=== PATIENT | female | born 1945 | race Caucasian/White ===

== ENCOUNTER 2016-11-20 15:21 | Emergency (ER) | payer MEDICAID, OTHER ==
[~2016-11-20] VITALS: Ht 165.1 cm; Wt 90.0 kg
[~2016-11-20 15:21] MED LIST: ALBU8.5H3 INH; AMLO-145 PO; AMOX1TAB10 PO; BENZ1LOZ52 MM; CIPR500T4 PO; CLON-339 PO; FURO-109 PO; GUAI120S26 PO; HYDR-3498 PO; HYDR25TA6 PO; IBUP-1542 PO; TRAM50TA2 PO
[2016-11-20 15:24] VITALS: Ht 165.1 cm; Wt 90.0 kg
[2016-11-20] MEDS ORDERED: ALBUTEROL 0.5% (NEB) 2.5 MG/0.5 ML AMP INH STA (16:18)
[2016-11-20] MEDS ORDERED: IPRATROPIUM (NEB) 0.5 MG/2.5 ML AMP INH STA (16:18)
[2016-11-20] MEDS ORDERED: METHYLPREDNISOLONE 125 MG INJ IM STA (16:18)
--- NOTE | 2016-11-20 17:02 | RADRPT ---
PROCEDURE: XR Chest. CLINICAL INDICATION: Cough, wheezing. TECHNIQUE: PA and lateral chest x-ray. COMPARISON: 01/21/2016 FINDINGS: There is retrocardiac consolidation. The left hemidiaphragm is obscured. The lungs are clear. There is no evidence of pleural effusion. No pneumothorax identified. The heart size is large. There is atherosclerotic calcification of the aorta. The cardiomediastinal silhouette is unremarkable. Right shoulder joint capsule calcifications measuring up to 1.3 cm, unchanged. The soft tissues are within normal limits. IMPRESSION: 1. Retrocardiac atelectasis versus infiltrate. 2. Cardiomegaly increased from previous exam.. 3. Atherosclerotic calcification of the aorta.. RPTAT: QQ .Waldo Skinner MD, Date Time Electronically viewed and signed by .Waldo Skinner MD, on 11/20/2016 17:02 .M/
[2016-11-20] MEDS ORDERED: AZITHROMYCIN 500MG/NS (PMX) 250 ML IVPB ONE (18:00)
[2016-11-20] MEDS ORDERED: CEFTRIAXONE 1 GM/50 ML (PMX) 50 ML IVPB ONE (18:00)
[2016-11-20 18:17] LABS: ABNORMAL IP MESSAGE 1; BASOPHIL # 0.1 10^3/ul (0.0-0.1); BASOPHILS % 0.4 % (0.0-2.0); EOSINOPHILS % 0.2 % (0.0-7.0); HEMATOCRIT 40.2 % (37.0-47.0); HEMOGLOBIN 13.1 g/dl (12.0-16.0); LYMPHOCYTES # 5.2 10^3/ul (0.8-2.9); LYMPHOCYTES % 36.8 % (15.0-51.0); MEAN CORPUSCULAR HEMOGLOBIN 27.2 pg (29.0-33.0); MEAN CORPUSCULAR HGB CONC 32.6 g/dl (32.0-37.0); MEAN CORPUSCULAR VOLUME 83.6 fl (82.0-101.0); MEAN PLATELET VOLUME 10.5 fl (7.4-10.4); MONOCYTE # 0.9 10^3/ul (0.3-0.9); NEUTROPHILS % 55.6 % (39.0-77.0); PLATELET COUNT 282 10^3/UL (140-415); RED BLOOD COUNT 4.81 10^6/ul (4.20-5.40); RED CELL DISTRIBUTION WIDTH 15.5 % (11.5-14.5); WHITE BLOOD COUNT 14.2 10^3/ul (4.8-10.8)
[2016-11-20 18:18] LABS: POSITIVE DIFF @See below
[2016-11-20 18:32] LABS: INR 0.96; PROTIME 12.8 Sec (12.2-14.2)
[2016-11-20 18:33] LABS: PARTIAL THROMBOPLASTIN TIME 23.9 Sec (25.0-35.0)
[2016-11-20 18:35] LABS: ALBUMIN 3.8 g/dl (3.3-4.9); ALBUMIN/GLOBULIN RATIO 1.31; BILIRUBIN,INDIRECT 0.3 mg/dl (0-1.1); BILIRUBIN,TOTAL 0.3 mg/dl (0.2-1.3); CALCIUM 9.1 mg/dl (8.4-10.2); CREATININE 0.97 mg/dl (0.44-1.00); POTASSIUM 3.8 mmol/L (3.5-5.1); TOTAL PROTEIN 6.7 g/dl (6.1-8.1)
[2016-11-20 18:47] LABS: TROPONIN-I 0.014 ng/ml (0.00-0.12)
--- NOTE | 2016-11-20 19:01 | ERD ---
ER Documentation Chief Complaint Date/Time DATE: 11/20/16 Chief Complaint Cough x 15 days, history of asthma HPI The patient is a 71-year-old female with a history of asthma, who presents to the Emergency Department with complaint of cough and wheezing. The patient reports that her cough initially began 15 days ago, with onset of rhinorrhea, mildly dry cough, with associated intermittent wheezing. However, she notes that over the past week, her cough has become more productive, with yellow- colored sputum. Additionally, she notes more frequently wheezing. She admits to a history of asthma, but states that she no longer has an inhaler, and no longer has an Albuterol vials for her nebulizer machine at home. Therefore, she has been using Robitussin at home, with minimal relief. She denies any fevers, sweats, chills, chest pain, palpitations, shortness of breath, abdominal pain, vomiting, diarrhea, dysuria, hematuria, flank pain, headache, dizziness, neck pain or new rashes. She has not yet seen her doctor for these symptoms. ROS All systems reviewed and are negative except as per history of present illness. Medications Home Meds Active Scripts Prednisone* (Prednisone*) 20 Mg Tab, 40 MG PO DAILY for 5 Days, TAB Prov:MILAGROS STEARNS PA-C 11/20/16 Doxycycline Hyclate* (Doxycycline Hyclate*) 100 Mg Tablet.dr, 100 MG PO BID for 10 Days, TAB Prov:MILAGROS STEARNS PA-C 11/20/16 Albuterol Sulfate* (Ventolin HFA*) 18 Gm Hfa.aer.ad, 2 PUFF INHALATION Q4H, #1 INHALER Prov:MILAGROS STEARNS PA-C 11/20/16 Albuterol Sulfate* (Albuterol Sulfate* Neb) 0.083%-3 Ml Neb, 2.5 MG NEB Q4H, # 30 VIAL Prov:MILAGROS STEARNS PA-C 11/20/16 Benzocaine/Menthol* (Cepacol* Sore Throat Lozenges) 1 Each Lozenge, 1 EACH MM q2h Y for SORE THROAT for 7 Days, #20 LOZENGE Prov:Agata Echols PA-C 01/13/16 Cgzsrhvekqe-I-Jjukxwictl Hb* (Guaifenesin* DM Syrup) 120 Ml Syrup, 10 ML PO Q4H Y for COUGH for 7 Days, #120 ML Prov:Agata Echols PA-C 01/13/16 Albuterol Sulfate* (Proair HFA*) 8.5 Gm Hfa.aer.ad, 2 PUFF INH Q4, #1 INHALER Prov:Agata Echols PA-C 01/13/16 Amox Tr/Potassium Clavulanate (Amox Tr-K Clv 875-125 Mg Tab) 1 Tab Tablet, 1 TAB PO BID, #14 TAB Prov:MERCEDES SPRAGUE PA-C 09/24/15 Albuterol Sulfate* (Proair HFA*) 8.5 Gm Hfa.aer.ad, 2 PUFF INH Q4, #1 INHALER Prov:ARMANDO PALENCIA PA-C 08/02/15 Furosemide* (Lasix*) 40 Mg Tablet, 40 MG PO DAILY for 7 Days, #7 TAB Prov:ARMANDO PALENCIA PA-C 08/02/15 Tramadol HCl (Tramadol HCl) 50 Mg Tab, 50 MG PO Q4 Y for PAIN, #20 TAB Prov:MERCEDES SPRAGUE PA-C 11/18/14 Ibuprofen* (Ibuprofen*) 600 Mg Tablet, 600 MG PO Q6, #20 TAB Prov:LAURY TINAJERO MD 11/10/14 Hydrocodone Bit-Acetaminophen* (Oley*) 5-325 Mg Tab, 1 TAB PO Q6 Y for PAIN, # 15 TAB Prov:LAURY TINAJERO MD 11/10/14 Ciprofloxacin Hcl* (Ciprofloxacin Hcl*) 500 Mg Tablet, 500 MG PO BID for 7 Days , TAB Prov:LAURY TINAJERO MD 11/10/14 Reported Medications Amlodipine Besylate* (Amlodipine Besylate*) 5 Mg Tablet, 5 MG PO DAILY, TAB 11/10/14 Hydrochlorothiazide (Hydrochlorothiazide) 25 Mg Tablet, 25 MG PO DAILY, TAB 11/10/14 Clonidine HCl (Clonidine HCl ER) 0.1 Mg Tab.er.12h, 0.1 MG PO AM 11/10/14 Allergies Allergies: Coded Allergies: No Known Allergy (Unverified , 08/02/15) PMhx/Soc Anesthesia Reaction: No Hx Neurological Disorder: No Hx Respiratory Disorders: Yes (asthma) Hx Cardiac Disorders: Yes (htn ) Hx Psychiatric Problems: No Hx Miscellaneous Medical Probl: No Hx Alcohol Use: No Hx Substance Use: No Hx Tobacco Use: No Smoking Status: Never smoker Physical Exam Vitals Vital Signs Date Time Temp Pulse Resp B/P Pulse Ox O2 Delivery O2 Flow Rate FiO2 11/20/16 19:30 98.6 71 18 132/71 99 Room Air 11/20/16 16:30 84 18 96 21 11/20/16 15:24 98.6 90 18 139/94 97 Physical Exam GENERAL: Well-developed, well-nourished, in no acute distress. Nontoxic. Well- appearing. HEENT: Head is normocephalic, atraumatic. No scleral pallor or icterus. Pupils equal, round and reactive to light. Extraocular movements intact. Conjunctiva pink. Nares are patent bilaterally. Bilaterally tympanic membranes are clear with no evidence of erythema, effusion or dulling of the light reflex. Moist mucous membranes. No pharyngeal erythema or exudates. Uvula is midline. NECK: Supple. No masses, no tenderness, no lymphadenopathy. Trachea midline. No nuchal rigidity. Full range of motion. RESPIRATORY:Prolonged expiratory phase. Wheezes auscultated bilaterally. No rales. No accessory muscle use. Speaking in full sentences. No retractions. No nasal flaring. Normal expiratory effort. CARDIOVASCULAR: Regular rate and rhythm. S1 and S2 normal. GASTROINTESTINAL: Abdomen is soft, nontender, and nondistended. No guarding, no rebound tenderness. Normal bowel sounds. FLANK: No CVA tenderness. EXTREMITIES: No clubbing, cyanosis, or edema. Normal skin perfusion. Moving all extremities. No calf swelling or calf tenderness. Muscle tone is normal. No focal swelling or erythema. Distal pulses are palpable, 2+ bilaterally. Capillary refill is less than 2 seconds. NEUROLOGIC: The patient is alert, awake, and oriented x 3. No focal neurologic deficits. INTEGUMENT: Skin is clean, dry and intact. No rashes, lesions or petechiae present. PSYCHIATRIC: Appropriate; Cooperative. Result Diagram: 11/20/16 1800 11/20/16 1800 Results 24 hrs Laboratory Tests Test 11/20/16 18:00 White Blood Count 14.210^3/ul Red Blood Count 4.8110^6/ul Hemoglobin 13.1g/dl Hematocrit 40.2% Mean Corpuscular Volume 83.6fl Mean Corpuscular Hemoglobin 27.2pg Mean Corpuscular Hemoglobin Concent 32.6g/dl Red Cell Distribution Width 15.5% Platelet Count 68261^3/UL Mean Platelet Volume 10.5fl Neutrophils % 55.6% Lymphocytes % 36.8% Monocytes % 6.0% Eosinophils % 0.2% Basophils % 0.4% Nucleated Red Blood Cells % 0.0/100WBC Neutrophils # (Manual) 7.910^3/ul Lymphocytes # 5.210^3/ul Monocytes # 0.910^3/ul Eosinophils # 0.010^3/ul Basophils # 0.110^3/ul Nucleated Red Blood Cells # 0.010^3/ul Prothrombin Time 12.8Sec Prothrombin Time Ratio 1.0 INR International Normalized Ratio 0.96 Activated Partial Thromboplast Time 23.9Sec Sodium Level 141mmol/L Potassium Level 3.8mmol/L Chloride Level 105mmol/L Carbon Dioxide Level 29mmol/L Anion Gap 11 Blood Urea Nitrogen 22mg/dl Creatinine 0.97mg/dl Glucose Level 178mg/dl Calcium Level 9.1mg/dl Total Bilirubin 0.3mg/dl Direct Bilirubin 0.00mg/dl Indirect Bilirubin 0.3mg/dl Aspartate Amino Transf (AST/SGOT) 25IU/L Alanine Aminotransferase (ALT/SGPT) 43IU/L Alkaline Phosphatase 112IU/L Troponin I 0.014ng/ml B-Type Natriuretic Peptide 154PG/ML Total Protein 6.7g/dl Albumin 3.8g/dl Globulin 2.90g/dl Albumin/Globulin Ratio 1.31 Current Medications Medications (Trade) Dose Ordered Sig/Nii Route PRN Reason Start Time Stop Time Status Last Admin Dose Admin Albuterol (Proventil 0.5% (Neb)) 10 mg ONCE STAT INH 11/20/16 16:18 11/20/16 16:20 DC 11/20/16 16:29 Ipratropium [place] (Atrovent 0.02% (Neb)) 1 mg ONCE STAT INH 11/20/16 16:18 11/20/16 16:20 DC 11/20/16 16:30 Methylprednisolone Sodium Succinate 125 mg 125 mg ONCE STAT IM 11/20/16 16:18 11/20/16 16:20 DC 11/20/16 16:29 Ceftriaxone Sodium 50 ml @ 100 mls/hr ONCE ONCE IVPB 11/20/16 18:00 11/20/16 18:29 DC 11/20/16 18:02 Azithromycin (Zithromax 500mg/ NS (Pmx)) 250 ml @ 250 mls/hr ONCE ONCE IVPB 11/20/16 18:00 11/20/16 18:59 DC 11/20/16 18:10 Procedures/MDM EMERGENCY DEPARTMENT COURSE: The patient was stable throughout the ED course. Solu-Medrol 125 mg administered. Breathing treatment, 10 mg Albuterol, 1 mg Atrovent, continuous, administered by respiratory therapy. EKG, chest x-ray, laboratory testing performed. On reevaluation, the patient reports no new complaints and states that she is feeling significantly improved. X-ray imaging with findings of possible retrocardiac infiltrate. Rocephin 1 gram , Azithromycin 500 mg administered IV. The patient's case was reviewed and discussed with ED attending/supervising physician, Dr. Linder, who agrees with management and plan. Recommends discharge home with trial of oral antibiotics (Doxycycline) and strict return precautions for signs of worsening condition. DIAGNOSTIC TESTS AND INTERPRETATION: PROCEDURE: XR Chest. CLINICAL INDICATION: Cough, wheezing. TECHNIQUE: PA and lateral chest x-ray. COMPARISON: 01/21/2016 FINDINGS: There is retrocardiac consolidation. The left hemidiaphragm is obscured. The lungs are clear. There is no evidence of pleural effusion. No pneumothorax identified. The heart size is large. There is atherosclerotic calcification of the aorta. The cardiomediastinal silhouette is unremarkable. Right shoulder joint capsule calcifications measuring up to 1.3 cm, unchanged. The soft tissues are within normal limits. IMPRESSION: 1. Retrocardiac atelectasis versus infiltrate. 2. Cardiomegaly increased from previous exam.. 3. Atherosclerotic calcification of the aorta.. .Waldo Skinner MD, MD Date Time Electronically viewed and signed by .Waldo Skinner MD, on 11/20/2016 17: 02 EKG reviewed and interpreted by: Dr. Linder. EKG Interpretation: Normal sinus rhythm. 80 bpm. Right axis deviation. No ectopy. Q wave III. T wave inversion V1, V2. No ST-segment elevations. MEDICAL DECISION MAKING: This is a 71-year-old female presenting to the emergency department complaining of rhinorrhea, wheezing and productive cough. On physical examination the patient had a prolonged expiratory phase, with wheezes auscultated throughout bilateral lung cartwright. No rales or rhonchi were noted. She was afebrile with no tachycardia, no tachypnea and a normal O2 saturation on room air. She had no retractions, no increased work of breathing, no nasal flaring, no accessory muscle use. She exhibited no altered mental status, neurologic deficits or meningeal signs. She was placed in a room and observed. The patient was given Albuterol and Atrovent continuos breathing treatment. Solu-Medrol 125 mg IM was also administered. After rest, a period of observation, medication and breathing treatment, the patient had resolution of her wheezing, and felt significantly better. Her lungs are now clear to auscultation bilaterally, with no rales, rhonchi or wheezing. No intercostal retractions, nasal flaring, accessory muscle use or signs of respiratory distress. Differential diagnosis includes, but is not limited to, pneumonia, pulmonary edema, sinusitis, foreign body, pertussis, upper respiratory infection, asthma, allergic rhinitis, GERD, bronchitis, allergic reaction, influenza, pharyngitis. X-ray imaging revealed a retrocardiac infiltrate, concerning for pneumonia. Azithromcyin and Rocephin IV administered. After rest the patient reports no new complaints and reports feeling better, with no shortness of breath or respiratory distress. Upon my review and interpretation of the patient's presentation and ER course, I believe the patient's symptoms are most consistent with pneumonia and asthma exacerbation. No evidence of apnea, respiratory failure, dehydration, meningitis or other life-threatening etiology. Patient has 2 points on CURB-65 score. At this time she is well-appearing. Her neck was supple, with no altered mental status, and therefore I doubt meningitis. Oropharynx was clear, with no erythema, exudates, petechiae, no associated cervical lymphadenopathy, and therefore I doubt streptococcal pharyngitis. At this time, the patient is in stable condition and not experiencing any current shortness of breath, wheezing or any signs of respiratory distress, and prefers to be trialled on outpatient treatment with close follow up and therefore will be discharged home with a prescription for Doxycycline, Prednisone, Albuterole and strict return precautions for signs of deteriorating or worsening condition. The patient is advised to follow up with her primary care provider within 1-2 days for reevaluation and further management or return to the ER sooner for any worsening symptoms. I shared my medical decision making and plan with the patient at length and in great detail, and she verbally understands and agrees with the plan for further observation and care as an outpatient. At the time of discharge all questions were answered. Departure Diagnosis: Primary Impression: Pneumonia Pneumonia type: due to unspecified organism Laterality: unspecified laterality Lung location: unspecified part of lung Qualified Code: J18.9 - Pneumonia due to infectious organism, unspecified laterality, unspecified part of lung Additional Impression: Asthma with acute exacerbation Asthma severity: unspecified severity Qualified Code: J45.901 - Asthma with acute exacerbation, unspecified asthma severity Condition: Stable Patient Instructions: Asthma, Acute (Adult), Pneumonia, Pneumonia (Adult) Additional Instructions: Llame al doctor MAANA y trace fartun DEANDRE PARA DENTRO DE 1-2 ENRIQUEZ.Dgale a la secretaria que nosotros le instruimos hacer esta deandre.Avise o llame si yusuf condicin se empeora antes de la deandre. Regresa aqui si peor o no mejor. MILAGROS STEARNS PA-C Nov 20, 2016 19:01 MILAGROS STEARNS PA-C Nov 20, 2016 19:01
[2016-11-20] MEDS ORDERED: ALBU2.5V3 NEB (19:02)
[2016-11-20] MEDS ORDERED: PRED20TA PO (19:03)
[2016-11-20] MEDS ORDERED: DOXY100T20 PO (19:03)
[2016-11-20] MEDS ORDERED: ALBU18HF INHALATION (19:03)
[2016-11-20 19:30] VITALS: BP 132/71; PULSE 71; RESP 18; TEMP 98.6
== END 2016-11-20 19:00 | disposition home or self-care (01) ==
LOC: FTE 15:21
DX: J18.9 Pneumonia, unspecified organism (principal); J45.901 Unspecified asthma with (acute) exacerbation; I10 Essential (primary) hypertension; R07.9 Chest pain, unspecified
CPT/HCPCS: 36415; 71020; 80053; 83880; 84484; 85025; 85610; 85730; 93005; 94644; 96372; 96374; 96375; J0696; J2930; Z7502; Z7610

== ENCOUNTER 2017-04-04 11:34 | Emergency (ER) | END 2017-04-04 19:47 | disposition home or self-care (01) ==

== ENCOUNTER 2017-04-07 09:41 | Emergency (ER) | END 2017-04-07 15:58 | disposition home or self-care (01) ==

== ENCOUNTER 2017-07-28 10:26 | Emergency (ER) | END 2017-07-28 12:42 | disposition home or self-care (01) ==

== ENCOUNTER 2017-08-28 21:30 | Emergency (ER) | END 2017-08-29 01:04 | disposition home or self-care (01) ==

== ENCOUNTER 2017-09-04 12:32 | Emergency (ER) | END 2017-09-04 16:05 | disposition home or self-care (01) ==

== ENCOUNTER 2017-11-13 11:29 | Emergency (ER) | END 2017-11-13 15:35 | disposition home or self-care (01) ==

== ENCOUNTER 2018-01-26 09:45 | Emergency (ER) | END 2018-01-26 13:57 | disposition home or self-care (01) ==